=== PATIENT | male | born 1995 | race Caucasian/White ===

== ENCOUNTER 2019-06-28 15:57 | Emergency (ER) | payer SELFPAY ==
[2019-06-28 16:18] VITALS: BP 114/67
--- NOTE | 2019-06-28 16:42 | UC ---
Laceration HPI - HPI Summary HPI Summary: 24 y/o male presents to the urgent care c/o left index finger at the corner of her nail s/p cutting plastic rubber ball w/ a knife today around 14:45pm. Pt states finger tip sliced,through part of nail. Pain is 2/10 at touch and bleeding controlled with bandage. Seh can move her finger w/o any difficulty. Last Tetanus was on 04/05/2013. Pt denies numbness or tingling sensation over the left index or hand, fever, SOB, chest pain,abdominal pain, N/V/D. - History Of Current Complaint Chief Complaint: UCLaceration Stated Complaint: LEFT FINGER LAC Time Seen by Provider: 06/28/19 16:40 Hx Obtained From: Patient Laceration Location: Finger Mechanism Of Injury: Sharp Trauma Onset/Duration: Gradual Onset - 2 hrs ago Severity: Mild Pain Intensity: 2 Pain Scale Used: 0-10 Numeric Aggravating Factors: Other: - touch Related History: Dominant Hand Right - Allergies/Home Medications Allergies/Adverse Reactions: Allergies Allergy/AdvReac Type Severity Reaction Status Date / Time environmental Allergy Intermediate sinus Uncoded 06/28/19 16:20 congestion, wheezing Home Medications: Home Medications Albuterol HFA INHALER* [Ventolin HFA Inhaler*] 1 puff INH Q4H PRN 06/28/19 [ History Confirmed 06/28/19] PMH/Surg Hx/FS Hx/Imm Hx Previously Healthy: Yes Respiratory History: Asthma - Surgical History Surgical History: None - Family History Known Family History: Positive: None - Pt denies FMHX - Social History Occupation: Employed Full-time Lives: With Family Alcohol Use: None Substance Use Type: None Smoking Status (MU): Never Smoked Tobacco - Immunization History Hx Tetanus, Diphtheria Vaccination: No - 04/05/2013 Review of Systems All Other Systems Reviewed And Are Negative: Yes Constitutional: Positive: Negative Skin: Positive: Other - laceration of the tip corner of his LF index finger w/ a knife about 2 hrs ago. bleeding stopped w/ pressure Eyes: Positive: Negative ENT: Positive: Negative Respiratory: Positive: Negative Cardiovascular: Positive: Negative Gastrointestinal: Positive: Negative Genitourinary: Positive: Negative Motor: Positive: Negative Neurovascular: Positive: Negative Musculoskeletal: Positive: Other: - left index finger pain s/p laceration Neurological: Positive: Negative Psychological: Positive: Negative Is Patient Immunocompromised?: No Physical Exam - Summary Physical Exam Summary: Vital Signs Reviewed: Yes General: well developed, well nourished female sitting in the examining table w/ o any apparent distress Eye Exam: Normal Eyes: Positive: Conjunctiva Clear - PERRLA, EOMI, fundi grossly normal ENT: Positive: Normal ENT inspection, Hearing grossly normal, Pharynx normal, TMs normal Neck: Positive: Supple, Nontender, No Lymphadenopathy Respiratory: Positive: Chest non-tender, Lungs clear, Normal breath sounds, No respiratory distress Cardiovascular: Positive: RRR, No Murmur, Pulses Normal, Brisk Capillary Refill Abdomen Description: Positive: Nontender, No Organomegaly, Soft. Negative: CVA Tenderness (R), CVA Tenderness (L) Bowel Sounds: Positive: Present Musculoskeletal: Positive: Strength Intact, ROM Intact, No Edema Neurological: Positive: Alert, Muscle Tone Normal Psychological Exam: Normal Skin: Positive: radial side of the tip corner of the left index finger nail with a semilunar linear superficial laceration about 1.0cm in diameter, non bleeding, no foreign body observed. mild tenderness to palpation. FROM of LF index finger, sensation intact, capillary refill brisk, and pulses WNL. Triage Information Reviewed: Yes Vital Signs: Initial Vital Signs Temp 99.4 F 06/28/19 16:13 Pulse 93 06/28/19 16:13 Resp 15 06/28/19 16:13 BP 114/67 06/28/19 16:13 Pulse Ox 98 06/28/19 16:13 Laceration Repair - Laceration Repair 1 Description: Linear - semilunar superficial laceration at the tip of the radial side of the left index finger nail Laceration Size After Repair: Length (cm) - 1cm in diameter Modified For Repair: No Cleansing Completed Via Routine Prep: Yes Irrigation With Pressure Irrigation Device: Yes Closure Material: Skin Adhesive, SteriStrips - 4 Closure Method: Single Layer Suture Of: Skin - corner of Rt index nail, SQ Laceration Course/Dx - Course/Dx Course Of Treatment: 24 y/o male presents to the urgent care c/o left index finger at the corner of her nail s/p cutting plastic rubber ball w/ a knife today around 14:45pm. Pt states finger tip sliced,through part of nail. Pain is 2/10 at touch and bleeding controlled with bandage. Matt can move her finger w/o any difficulty. Last Tetanus was on 04/05/2013. Pt denies numbness or tingling sensation over the left index or hand, fever, SOB, chest pain,abdominal pain, N/V/D.Hx obtained. Pt w/ radial side of the tip corner of the left index finger nail with a semilunar linear superficial laceration about 1.0cm in diameter, non bleeding, no foreign body observed. mild tenderness to palpation. FROM of LF index finger , sensation intact, capillary refill brisk, and pulses WNL on examination.LACERATION PROCEDURE NOTE: . Copious irrigation was done with saline and the wound explored. There was no FB or deep structure injury noted. wound cleaned w/ Iodine swabs. Laceration closed w/ skin adhesive and 4 steri- strips. Wound dressed w/ sterile gauze.The Pt tolerated the procedure well without adverse effects. Neurovascular intact and FROM of left index finger. Tdap ordered and applied by nurse. Pt advised if any signs of infection develop to immediately return to the urgent care of PCP for further management and treatment. Pt understood and agreed and left the clinic ambulating A&Ox3. - Differential Dx - Laceration/Wound Differental Diagnoses: Abrasion, Avulsion, Laceration, Puncture Wound, Tendon Laceration - Diagnosis Provider Diagnosis: Laceration of left index finger Discharge ED - Sign-Out/Discharge Documenting (check all that apply): Patient Departure - D/C home All imaging exams completed and their final reports reviewed: No Studies - Discharge Plan Condition: Stable Disposition: HOME Patient Education Materials: Laceration (ED), Skin Adhesive Care (ED) Referrals: [facility] [place] [facility] [Outside] - 1 Week Additional Instructions: 1-Please apply topical Bacitracin antibiotic ointment over the wound when steri -strips come off by itself to prevent infection. Keep wound clean and dry. 2- You were given a booster of Tetanus vaccine today 3-Take Ibuprofen or Tylenol PO q6-8hrs prn for pain or swelling. Avoid excessive movement w/ your finger 4- If you develop fever or redness around your finger please return to the Urgent care or f/u w/ your PCP for further evaluation and treatment - Billing Disposition and Condition Condition: STABLE Disposition: Home
[2019-06-28] MEDS ORDERED: Tetan/Diph/Pertus SYR(Tdap)* 0.5 ML SYR(BOOSTRIX) use SYR IM ONE (16:59)
== END 2019-06-28 17:42 | disposition home or self-care (01) ==
LOC: UCEAST 15:57
DX: S61.211A Laceration without foreign body of left index finger without damage to nail, initial encounter (principal); W26.9XXA Contact with unspecified sharp object(s), initial encounter; Y92.9 Unspecified place or not applicable; J45.909 Unspecified asthma, uncomplicated; Z23 Encounter for immunization
CPT/HCPCS: 12001; 90471; 90715; 99201; G0463